=== PATIENT | female | born 1960 | race Caucasian/White ===

== ENCOUNTER 2018-12-06 15:40 | Observation (INO) | payer BC, SELFPAY ==
[2018-12-06] VITALS (9 sets, daily range): BP systolic 115–152; BP diastolic 60–86; PULSE 105–118; RESP 6–20; TEMP 36.5–37; O2SAT 92–98
[2018-12-06 16:05] LABS: Bilirubin Negative (Negative); Blood Negative (Negative); Clarity Clear (Clear); Glucose Negative (Negative); Ketones Negative (Negative); Leukocyte Esterase Negative (Negative); Nitrite Negative (Negative); Specific Gravity 1.025 (1.005-1.025); Urobilinogen 0.2 EU/dL (Up TO 0.2); pH 5.5 (5-8)
[2018-12-06] MEDS: Lactated Ringers 1,000 ML 1000 ML IV (16:28)
[2018-12-06 16:42] LABS: Abs Immature Grans 0.03 k/cumm (0.0-0.09); Absolute Basophil Count 0.02 k/cumm (0.0-0.2); Absolute Eosinophil Count 0.17 k/cumm (0.0-0.7); Absolute Lymphocyte Count 1.65 k/cumm (1.2-3.4); Absolute Monocyte Count 0.81 k/cumm (0.11-0.7); Basophils % 0.2; Eosinophils % 1.6; HCT 43.1 % (36.0-46.0); HGB 14.3 g/dL (12.0-15.5); Immature Grans % 0.3; Lymphocytes % 15.6; Mean Corp. HGB Concentration 33.2 g/dL (32.0-36.0); Mean Corpuscular Hemoglobin 28.5 pg (27.0-33.0); Mean Corpuscular Volume 85.9 fL (80-95); Mean Platelet Volume 10.5 fL (8.0-11.0); Monocytes % 7.7; Neutrophils % 74.6; Platelet Count 239 x1000/uL (130-400); RBC 5.02 m/cumm (4.00-5.20); White Blood Cell Count 10.58 k/cumm (4.4-10.8)
[2018-12-06 17:04] LABS: ALT 28 U/L (12-78); AST 10 U/L (15-37); Albumin 3.5 g/dL (3.4-5.0); Alkaline Phosphatase 85 U/L (46-116); Anion Gap 8.3 mmol/L (3-11); BUN 18 mg/dL (7-18); Bilirubin, Total 0.4 mg/dL (0.2-1.0); CO2 25.7 mmol/L (21.0-32.0); CREATININE 0.72 mg/dL (0.55-1.02); Calcium 8.9 mg/dL (8.5-10.1); Chloride 105 mmol/L (98-107); Glucose 90 mg/dL (70-100); Magnesium 1.8 mg/dL (1.8-2.4); Potassium 3.9 mmol/L (3.5-5.1); Sodium 139 mmol/L (136-145); Total Protein 7.5 g/dL (6.4-8.2)
[2018-12-06 17:20] LABS: Troponin I < 0.05 ng/mL (0.00-0.06)
--- NOTE | 2018-12-06 17:37 | DI.CT_ITS ---
SYMPTOM/DIAGNOSIS: RLQ PAIN ABDOMEN AND PELVIC CT: CT scan of the abdomen and pelvis was performed following the uneventful administration of intravenous contrast material. There are no priors for comparison. Atelectatic changes are seen in the lung bases. Note is made of a small hiatal hernia. The liver is normal in size. There is diffuse decreased attenuation of the liver suggesting hepatic steatosis. No suspicious hepatic mass is seen. The portal, superior mesenteric and splenic veins are patent. The gallbladder appears negative. There is no biliary ductal dilatation. The pancreas and peripancreatic soft tissues show no acute abnormality. The spleen is unremarkable. The right adrenal gland is unremarkable. There is a solid, 2.6 by 2.4 cm. left adrenal mass. The kidneys show normal and symmetric enhancement. There are tiny hypodensities seen within the kidneys bilaterally. They are too small for further characterization but likely reflect small cysts. There is a non obstructing 3 mm. stone in the lower pole of the right kidney. The urinary bladder is intact. There is a right inguinal hernia present. There is fat and soft tissue in the hernia. There does not appear to be bowel in the hernia. The uterus is deviated to the right near the hernia orifice. There is soft tissue adjacent to the uterus measuring 2.8 by 1.8 cm. It may represent the right ovary. Soft tissue in the right inguinal hernia may represent mesenteric tissue/omental tissue or possible ovarian tissue. Mass cannot be excluded. The appendix is visualized and is grossly unremarkable. There is mild bowel wall thickening seen in the terminal ileum. There is also mild dilatation of the small bowel proximal to the ileum. The colon is of normal caliber. No inflammatory process or obstruction of the colon is noted. The abdominal aorta is of normal caliber. No significant abdominal or pelvic adenopathy or pneumoperitoneum is seen. There is a trace amount of free fluid in the pelvis. Moderate degenerative changes are seen throughout the spine. IMPRESSION: Right inguinal hernia with inflammatory change, fluid and soft tissue within the hernia and in the right lower quadrant. Mild inflammatory changes are seen in the wall of the terminal ileum. There is mild dilatation of the small bowel proximally. This may represent ileus or obstruction. Soft tissue in the right inguinal hernia may represent inflamed mesentery or omentum. The possibility of a portion of the right ovary within the hernia may be considered. Normal appendix. 2.6 cm. left adrenal mass. Follow up is recommended. This may include a pre and post contrast CT scan according to the adrenal protocol. If there are prior studies for comparison, they may be submitted and an addendum will be issued.
[2018-12-06] MEDS: Omnipaque 350 MG/ML 100 ML BTL IJ (17:42)
--- NOTE | 2018-12-06 18:20 | DI.VRAD_ITS ---
EXAM: CT Abdomen and Pelvis With Contrast EXAM DATE/TIME: 12/06/2018 4:18 PM CLINICAL HISTORY: 57 years old, female; Abdominal pain; Tenderness; Right lower quadrant (rlq); Patient HX: Rlq pain over TECHNIQUE: Imaging protocol: Axial computed tomography images of the abdomen and pelvis with intravenous contrast. Coronal and sagittal reformatted images were created and reviewed. Radiation optimization: All CT scans at this facility use at least one of these dose optimization techniques: automated exposure control; mA and/or kV adjustment per patient size (includes targeted exams where dose is matched to clinical indication); or iterative reconstruction. Contrast material: OMNI-PAQUE 350; Contrast volume: 100 ml; Contrast route: IV; COMPARISON: No relevant prior studies available. FINDINGS: Mediastinum: Hiatal hernia. Liver: Hepatic steatosis. Gallbladder and bile ducts: Normal. No calcified stones. No ductal dilation. Pancreas: Normal. No ductal dilation. Spleen: Normal. No splenomegaly. Adrenals: 2.6 cm left adrenal mass. Kidneys and ureters: Hypodense subcentimeter lesion in the kidneys may represent renal cysts. Punctate right renal calculus without hydronephrosis. Stomach and bowel: There is inflammatory changes of the terminal ileum in the right lower quadrant adjacent to the herniation. There is focal dilated small bowel. Appendix: The cecum and appendix are unremarkable. Intraperitoneal space: Small amount of free fluid. Vasculature: Atherosclerotic calcification of the aorta and iliac arteries. Atherosclerotic calcification of the aorta and iliac arteries. Lymph nodes: Normal. No enlarged lymph nodes. Bladder: Unremarkable as visualized. Reproductive: Herniation of the right ovary into the right inguinal canal with surrounding inflammatory changes of the right lower quadrant, right pelvis, and right inguinal canal. The uterus is displaced to the right and anterior. Left ovary is unremarkable. Bones/joints: Mild degenerative changes of the thoracic and lumbar spine. Soft tissues: Focal inflammatory changes right lower quadrant and right inguinal canal. The or IMPRESSION: Right ovary herniated through the right inguinal canal with surrounding inflammatory changes involving the right ovary and terminal ileum and dilated loops of small bowel. No free fluid. 2.6 cm left adrenal mass. Punctate right renal calculi without hydronephrosis. Dictated and Authenticated by: Ariella Weiner MD. Ordering:MARA Lopez MD
--- NOTE | 2018-12-06 19:08 | ED.GENADUL_ITS ---
Discharge Plan Disposition Patient Disposition: [facility] INPATIENT Condition: Poor Discharge Details Chief Complaint: Abd Prob Clinical Impression: Incarcerated right inguinal hernia Admit Date/Time: 12/06/18 22:36 Admit Provider: Yee Dominguez Attending Provider: Yee Dominguez Primary Care Provider: Carlota Bailey [facility] Course: This patient presented to the emergency department with significant right groin pain. She did have a known hernia. CT scan of the abdomen and pelvis showed an incarcerated right inguinal hernia with the right ovary present. She was taken to the operating room and underwent repair of the hernia. She tolerated the procedure very well. On the day of discharge she was tolerating a diet had excellent pain control and was passing flatus. It was noted on her CT scan that a left adrenal nodule was present. This should have follow-up testing to be sure it is not a functional nodule with a 24-hour urine. The patient will follow up with her primary care physician. The patient is also advised to have a sleep study based on her behavior immediately postoperatively. Discharge Instructions Instructions: Inguinal Hernia Repair (GEN) Additional Instructions: Okay to use Tylenol and ibuprofen for pain May drive when pain control is adequate for safe driving. Use Colace 100 mg once or twice a day as needed for constipation Call for any concerns with infection or bleeding Forms: Nursing Discharge Form Referrals: Yee Dominguez MD [ [facility] STAFF PHYSICIAN] - (Return to the office in 03-09 for a postoperative visit. This may be scheduled with JAIR Tolbert) Discharge Data Discharge Date/Time-TO BE ENTERED AT DEPARTURE: 12/06/18 20:40 Medical Decision Making Patient is a 57-year-old female presenting today with chief complaint of right lower quadrant pain. Patient reports that she has a hernia in this area that seem to be bothering her some yesterday. States that she is had dyspnea for several years and is typically able to reduce this easily. States that yesterday she notes some achiness in this area and is progressively worsened throughout the course today. Reports diminished appetite, has not eaten anything since this morning. Denies any nausea or vomiting. No change in bowel habits. No dysuria or change in urinary habits. She denies any fevers or chills. Surgical history pertinent for section. Patient reports that pain is worse with movements, particularly going to sitting up position. States that she also is very active recently and is questioning if this may be muscular. On exam, patient appears nontoxic. She is resting comfortably. She is particularly tender over McBurney's point. I do not palpate any area of hernia but her indication may simply this likely a inguinal hernia that she typically suffers from. I advised that I am concerned for possible appendicitis. Plan for imaging and laboratory evaluation. As the patient has not been taking anything p.o., will give oral hydration. Labs reviewed, patient has mild leukocytosis of 11. No electrolyte abnormalities. No findings to suggest a urinary involvement. CT reviewed by radiologist: FINDINGS: Mediastinum: Hiatal hernia. Liver: Hepatic steatosis. Gallbladder and bile ducts: Normal. No calcified stones. No ductal dilation. Pancreas: Normal. No ductal dilation. Spleen: Normal. No splenomegaly. Adrenals: 2.6 cm left adrenal mass. Kidneys and ureters: Hypodense subcentimeter lesion in the kidneys may represent renal cysts. Punctate right renal calculus without hydronephrosis. Stomach and bowel: There is inflammatory changes of the terminal ileum in the right lower quadrant adjacent to the herniation. There is focal dilated small bowel. Appendix: The cecum and appendix are unremarkable. Intraperitoneal space: Small amount of free fluid. Vasculature: Atherosclerotic calcification of the aorta and iliac arteries. Atherosclerotic calcification of the aorta and iliac arteries. Lymph nodes: Normal. No enlarged lymph nodes. Bladder: Unremarkable as visualized. Reproductive: Herniation of the right ovary into the right inguinal canal with surrounding inflammatory changes of the right lower quadrant, right pelvis, and right inguinal canal. The uterus is displaced to the right and anterior. Left ovary is unremarkable. Bones/joints: Mild degenerative changes of the thoracic and lumbar spine. Soft tissues: Focal inflammatory changes right lower quadrant and right inguinal canal. The or IMPRESSION: Right ovary herniated through the right inguinal canal with surrounding inflammatory changes involving the right ovary and terminal ileum and dilated loops of small bowel. No free fluid. 2.6 cm left adrenal mass. Punctate right renal calculi without hydronephrosis. Discussed findings with the patient. Will consult with OB and general surgery. Patient I also discussed the 2.6 cm left adrenal mass. She will follow-up with her primary care regarding this mass on outpatient basis. Consulted with Dr. Burnham with [facility]. Will speak with general surgery as well. Consulted with Dr. Best who recommended attempting to reduce the hernia. Reassessed the patient, both patient and I are unable to palpate the hernia, partially due to the patient's body habitus. I again consulted with general surgery who advised to take patient to the operating room. Dr. Burnham is also coming in to assess the patient and be available should her surgical specialty be necessary. Patient has remained n.p.o. while being here. She has remained comfortable. We discussed the expected course, all of her questions and concerns were addressed and she is in agreement this plan. Patient was taken to the operating room for hernia repair. HPI General Mode of arrival: ambulatory . Date/Time Provider Initiated Documentation: 12/06/18 15:55 . Limitations to Documentation: no limitations . Information obtained by: patient and RN notes reviewed . History of Present Illness 57 year old F presents to the emergency department with the chief complaint of RLQ abdominal pain, described as moderate, with intensity rated at 7. Quality is described as aching, and is localized to the abdomen. Patient reports no radiation. Patient started experiencing this day(s) (1) and it has been constant. No relieving factors improve symptom(s), No exacerbating factors reported . Patient notes loss of appetite; denies chest pain, cough, diaphoresis, fever/chills, headaches, malaise, nausea/vomiting, rash, shortness of breath and weakness. Patient did receive the following treatments prior to arrival, none Related Data Home Medications Medication Instructions Recorded Confirmed enalapril maleate 10 mg PO DAILY tab-cap 09/19/12 12/06/18 simvastatin 20 mg PO HS tab-cap 09/19/12 12/07/18 ibuprofen 600 mg PO PRN 11/10/15 12/06/18 amlodipine 2.5 mg PO DAILY 12/07/18 12/07/18 omeprazole 20 mg PO Q48H 12/07/18 12/07/18 tramadol 50 mg PO Q8H PRN #20 tab 12/07/18 Previous Rx's Medication Instructions Recorded tramadol 50 mg PO Q8H PRN #20 tab 12/07/18 Allergies Allergy/AdvReac Type Severity Reaction Status Date / Time No Known Allergies Allergy Unverified 12/06/18 15:46 General Stated Complaint: Abd Prob IZZY: 3 Review of Systems Constitutional Reports as per HPI, Denies chills, Denies fatigue, Denies fever(s) and Denies headache(s) ENT Denies headache(s) Cardiovascular Reports as per HPI, Denies chest pain and Denies dyspnea Respiratory Reports as per HPI, Denies cough and Denies dyspnea Gastrointestinal Reports as per HPI Musculoskeletal Reports as per HPI and Denies back pain Integumentary/Breasts Reports as per HPI and Denies rash Neurologic Reports as per HPI and Denies headache(s) Endocrine Denies fatigue PFSH Medical History Essential hypertension Hyperlipidemia Polyp of colon Surgical History Biopsy, Soft Tissue (03/27/17) section History of ankle surgery (Acute) Ligation of fallopian tube Family History Mother Diabetes Breast cancer Father Prostate cancer Essential hypertension Heart disease Grandmother Breast cancer Social History Smoking/Tobacco Use Status: Former Tobacco Use Alcohol Intake: current Alcohol Intake frequency: a few times a week Drug use: Never Substance use type: does not use Details: QUIT SMOKING MAY 30, 2009. Do you feel safe at home: Yes Do you feel safe in your relationship?: Yes Exam Const General: cooperative, healthy appearing, comfortable, no acute distress and well developed Nutritional Appearance: well nourished and overweight Orientation: alert and awake HENMT Head: normal to inspection Mouth: moist mucous membranes Resp Effort & Inspection: normal respiratory effort, able to speak in complete sentences and no respiratory distress Auscultation: clear to auscultation bilaterally, no rales, no rhonchi and no wheezes Cardio Rate: regular rate Rhythm: regular rhythm Heart Sounds: S1 normal and S2 normal GI Inspection: obesity Palpation: soft, no hepatosplenomegaly, not firm, guarding in the RLQ (over McBurney's point), not rigid, tender in the RLQ, at McBurney's point and with rebound tenderness; obturator sign negative and psoas sign negative and No ascites Percussion: normal to percussion Auscultation: normal bowel sounds Back/Spine/Pelvis Back: no CVA tenderness Skin General skin exam: no rashes or lesions noted Trauma: no lacerations or abrasions Neuro General: alert and awake Cognition: normal cognition Speech: speech normal Gait: normal gait Psych Appearance: grossly normal and well kempt Mental Status: mental status grossly normal Speech and Movement: speech and movement normal Course Vital Signs Temperature 36.8 C 12/06/18 15:43 Pulse 110 H 12/06/18 15:43 Respiratory Rate 20 12/06/18 15:43 Blood Pressure 129/86 12/06/18 15:43 Pulse Oximetry 96 12/06/18 15:43 Temperature 36.8 C 12/06/18 18:53 Temperature Source Skin 12/06/18 18:53 Pulse 113 H 12/06/18 18:53 Respiratory Rate 16 12/06/18 18:53 Respiratory Effort Non-Labored 12/06/18 15:43 Blood Pressure 148/79 H 12/06/18 18:53 Blood Pressure Position Standing 12/06/18 15:43 Pulse Oximetry 98 12/06/18 18:53 Oxygen Delivery Method Room Air 12/06/18 18:53 Oxygen Flow Rate 0 12/06/18 18:53 Pain Level 4 12/06/18 18:53 Lab/Test Results Lab/Test Results: Laboratory Tests Range/Units 12/06/18 12/06/18 12/06/18 15:52 16:10 16:10 WBC (4.4-10.8) k/cumm 10.58 RBC (4.00-5.20) m/cumm 5.02 Hgb (12.0-15.5) g/dL 14.3 Hct (36.0-46.0) % 43.1 MCV (80-95) fL 85.9 MCH (27.0-33.0) pg 28.5 MCHC (32.0-36.0) g/dL 33.2 RDW (11.7-14.6) % 14.0 Plt Count (130-400) x1000/uL 239 MPV (8.0-11.0) fL 10.5 Immature Gran % 0.3 Neutrophils % 74.6 Lymphocytes % 15.6 Monocytes % 7.7 Eosinophils % 1.6 Basophils % 0.2 Absolute Neutrophils (1.2-6.7) k/cumm 7.90 H Absolute Lymphocytes (1.2-3.4) k/cumm 1.65 Absolute Monocytes (0.11-0.7) k/cumm 0.81 H Absolute Eosinophils (0.0-0.7) k/cumm 0.17 Absolute Basophils (0.0-0.2) k/cumm 0.02 Sodium (136-145) mmol/L 139 Potassium (3.5-5.1) mmol/L 3.9 Chloride (98-107) mmol/L 105 Carbon Dioxide (21.0-32.0) mmol/L 25.7 Anion Gap (3-11) mmol/L 8.3 BUN (7-18) mg/dL 18 Creatinine (0.55-1.02) mg/dL 0.72 Estimated GFR/1.73 m2 (mL/min/1.73m2) >= 60.00 Glucose (70-100) mg/dL 90 Calcium (8.5-10.1) mg/dL 8.9 Magnesium (1.8-2.4) mg/dL 1.8 Total Bilirubin (0.2-1.0) mg/dL 0.4 AST (15-37) U/L 10 L ALT (12-78) U/L 28 Alkaline Phosphatase (46-116) U/L 85 Troponin I (0.00-0.06) ng/mL < 0.05 Total Protein (6.4-8.2) g/dL 7.5 Albumin (3.4-5.0) g/dL 3.5 Urine Color (Yellow) Yellow Urine Clarity (Clear) Clear Urine pH (5-8) 5.5 Ur Specific Ignacio (1.005-1.025) 1.025 Urine Protein (Negative) mg/dL Negative Urine Ketones (Negative) mg/dL Negative Urine Blood (Negative) Negative Urine Nitrite (Negative) Negative Urine Bilirubin (Negative) Negative Urine Urobilinogen (Up TO 0.2) EU/dL 0.2 Ur Leukocyte Esterase (Negative) Negative Urine Glucose (Negative) mg/dL Negative
--- NOTE | 2018-12-06 20:30 | HPE_ITS ---
Date of service: 12/06/18 Time of Service: 20:30 Assessment and Plan (1) Incarcerated right inguinal hernia: Current visit: Yes Status: Acute The patient will be taken to the OR tonight for reduction and repair of the right inguinal hernia. Dr. Chris Cordero will assist and perform a right oophorectomy in the event the ovary is compromised. There is not clearly bowel involved, but the patient was advised a small bowel resection with anastomosis is a remote possibility. The hernia will be approached from the groin initially but if there is any concern about intra-abdominal organs, there is also a remote possibility laparotomy will be needed. The risks of infection, bleeding, hernia recurrence, chronic pain or numbness, bowel leak were discussed. She agrees to proceed. History of Present Illness Narrative: Patient noted increased right groin pain after cleaning/reaching last evening. Pain worsened throughout the day and she presented to the ER. No vomiting but does have nausea. Patient has known inguinal hernia for years that has been reducible. CT showed a right inguinal hernia with incarceration of the right ovary. Review of Systems Constitutional Denies fatigue and Denies headache(s) Eyes Denies change in vision ENT Denies headache(s) and Denies neck mass Cardiovascular Denies chest pain, Denies edema, Denies palpitations and Denies dyspnea Respiratory Denies cough, Denies dyspnea and Denies wheezing Gastrointestinal Denies hematochezia and Denies change in bowel habits Genitourinary Denies abnormal vaginal bleeding and Denies dysuria Musculoskeletal Denies joint swelling Integumentary/Breasts Denies new lesions and Denies rash Neurologic Denies confusion, Denies headache(s) and Denies focal weakness Psychiatric Reports system reviewed and no additional complaints, except as docu and Denies confusion Endocrine Denies fatigue and Denies palpitations Hematologic/Lymphatic Denies easy bleeding and Denies lymphadenopathy Allergic/Immunologic Denies wheezing [facility] Medical History (Updated 12/06/18 @ 20:36 by Yee Dominguez MD) Essential hypertension Hyperlipidemia Polyp of colon Surgical History Biopsy, Soft Tissue (03/27/17) section History of ankle surgery (Acute) Ligation of fallopian tube Family History Mother Diabetes Breast cancer Father Prostate cancer Essential hypertension Heart disease Grandmother Breast cancer Social History Smoking/Tobacco Use Status: Former Tobacco Use Alcohol Intake: current Alcohol Intake frequency: a few times a week Drug use: Never Substance use type: does not use Do you feel safe at home: Yes Do you feel safe in your relationship?: Yes Meds Home Medications Medication Instructions Recorded Confirmed Type enalapril maleate 10 mg PO DAILY tab-cap 09/19/12 12/06/18 History omeprazole 20 mg PO DAILY tab-cap 09/19/12 12/06/18 History simvastatin 20 mg PO DAILY tab-cap 09/19/12 12/06/18 History amlodipine-atorvastatin 2.5 mg DAILY 02/20/13 12/06/18 History ibuprofen 600 mg PO PRN 11/10/15 12/06/18 History Allergies Allergy/AdvReac Type Severity Reaction Status Date / Time No Known Allergies Allergy Unverified 12/06/18 15:46 Exam Const General: healthy appearing and not in acute distress Nutritional Appearance: well nourished Orientation: oriented x3 HENMT Head: normal to inspection Eyes Sclera: sclerae normal Pupils: PERRL Neck Neck: no lymphadenopathy Resp Effort & Inspection: normal respiratory effort Auscultation: clear to auscultation bilaterally and no wheezes Cardio Rate: tachycardic Rhythm: regular rhythm Pulses: dorsalis pedis pulses present GI Inspection: non-distended Palpation: soft and no hepatosplenomegaly Other: Mild generalized abdominal tenderness Very tender to palpation in right groin. Hernia difficult to palpate due to discomfort. Skin General skin exam: no rashes or lesions noted Neuro General: alert Cognition: normal cognition Extrem General: normal to inspection Psych Affect: normal affect Attitude: cooperative Results Labs : 12/06/18 16:10 12/06/18 16:10 Laboratory Results - last 24 hr 12/06/18 12/06/18 12/06/18 15:52 16:10 16:10 WBC 10.58 RBC 5.02 Hgb 14.3 Hct 43.1 MCV 85.9 MCH 28.5 MCHC 33.2 RDW 14.0 Plt Count 239 MPV 10.5 Immature Gran % 0.3 Neutrophils % 74.6 Lymphocytes % 15.6 Monocytes % 7.7 Eosinophils % 1.6 Basophils % 0.2 Absolute Neutrophils 7.90 H Absolute Lymphocytes 1.65 Absolute Monocytes 0.81 H Absolute Eosinophils 0.17 Absolute Basophils 0.02 Sodium 139 Potassium 3.9 Chloride 105 Carbon Dioxide 25.7 Anion Gap 8.3 BUN 18 Creatinine 0.72 Estimated GFR/1.73 m2 >= 60.00 Glucose 90 Calcium 8.9 Magnesium 1.8 Total Bilirubin 0.4 AST 10 L ALT 28 Alkaline Phosphatase 85 Troponin I < 0.05 Total Protein 7.5 Albumin 3.5 Urine Color Yellow Urine Clarity Clear Urine pH 5.5 Ur Specific [place] 1.025 Urine Protein Negative Urine Ketones Negative Urine Blood Negative Urine Nitrite Negative Urine Bilirubin Negative Urine Urobilinogen 0.2 Ur Leukocyte Esterase Negative Urine Glucose Negative Last Vital Signs Temp 98.2 F 12/06/18 18:53 Pulse 113 H 12/06/18 18:53 Resp 16 12/06/18 18:53 BP 148/79 H 12/06/18 18:53 Pulse Ox 98 12/06/18 18:53
[2018-12-06] MEDS: Lactated Ringers 1,000 ML 125 ML IV (20:45)
[2018-12-06] MEDS: Lidocaine 2% Multi-Dose 50 ML VIAL (21:06)
[2018-12-06] MEDS: Bupivacaine 0.5% Pres-Free 30 ML VIAL (21:06)
[2018-12-07 00:08] VITALS: BP 113/77; PULSE 99; RESP 14; TEMP 37; O2SAT 93
[2018-12-07 01:10] VITALS: O2SAT 93
[2018-12-07 03:40] VITALS: BP 126/75; PULSE 108; RESP 18; TEMP 36.4; O2SAT 96
[2018-12-07] MEDS: Lactated Ringers 1,000 ML 75 ML IV (04:41)
[2018-12-07 07:25] VITALS: BP 112/68; PULSE 87; RESP 16; TEMP 36.7; O2SAT 94
[2018-12-07 08:03] LABS: Abs Immature Grans 0.03 k/cumm (0.0-0.09); Absolute Lymphocyte Count 0.72 k/cumm (1.2-3.4); Absolute Monocyte Count 0.46 k/cumm (0.11-0.7); HCT 40.6 % (36.0-46.0); Immature Grans % 0.3; Lymphocytes % 6.5; Mean Corpuscular Hemoglobin 27.6 pg (27.0-33.0); Mean Corpuscular Volume 86.2 fL (80-95); Monocytes % 4.2; Platelet Count 247 x1000/uL (130-400); RBC 4.71 m/cumm (4.00-5.20); White Blood Cell Count 11.06 k/cumm (4.4-10.8)
[2018-12-07 08:10] LABS: Absolute Neutrophil Count 9.84 k/cumm (1.2-6.7)
[2018-12-07] MEDS: Enalapril 5 MG TAB 10 MG PO (08:23)
[2018-12-07] MEDS: Omeprazole 20 MG CAPCR PO (08:24)
[2018-12-07] MEDS: Simvastatin 20 MG TAB PO (08:24)
[2018-12-07 10:40] VITALS: BP 114/69; O2SAT 94
[2018-12-07] MEDS: amLODIPine 2.5 MG TAB PO (10:40)
--- NOTE | 2018-12-07 11:26 | PDOC.CMIN ---
Care Management Initial Assess REASON FOR HOSPITALIZATION:: reduction and repair of right inguinal hernia PAST MEDICAL HISTORY/PAST SURGICAL HISTORY:: Essential hypertension, hyperlipidemia, polyp of colon, soft tissue biopshy of right anterior thigh, section x3, ankle surgery L fracture repair, ligation of fallopian tube PREVIOUS FUNCTIONAL STATUS/SOCIAL/FAMILY SUPPORTS:: Meera resides in [place], [place], and is a teacher at [employer]. Her daughter also resides in [place]. Her SO, Mike resides in [place], [place]. She is independent at baseline in the community. ADVANCE DIRECTIVES:: None on file at [facility]. Has patient been provided with information about the portal?: Yes Did the patient sign up for the portal?: Yes (Previously ) CODE STATUS:: Full Code INSURANCE COVERAGE / FINANCIAL ISSUES:: BC/BS CURRENT HOME/COMMUNITY SERVICES/EQUIPMENT:: No current services/equipment. PRIMARY CARE PHYSICIAN:: Carlota Bailey; [facility] POTENTIAL DISCHARGE NEEDS:: Follow up appointments with community providers. PATIENT/FAMILY EDUCATION NEEDS:: Review discharge instructions, discuss [employer]. ANTICIPATED BARRIERS TO DISCHARGE:: None identified at this time. TRANSPORTATION:: Via private vehicle with family. PLAN:: Meera continues to be closely monitored post surgically. She willl discharge home with no additional services anticipated at this time and follow up with her PCP as has recommendations for sleep study as well. She will transport via private vehicle with her significant other.
[2018-12-07 11:33] VITALS: BP 112/63; PULSE 96; RESP 20; TEMP 37.2; O2SAT 95
--- NOTE | 2018-12-07 11:36 | W.PM.DS.N ---
Date of service: 12/07/18 Time of Service: 11:36 DS: Diagnosis Discharge Diagnosis (1) Incarcerated right inguinal hernia: Status: Acute Discharge Plan Disposition Patient Disposition: HOME Condition: Good Discharge Details Chief Complaint: Abd Prob Reason For Visit: INCARCERATED RIGHT INGUINAL HERNIA Admit Date/Time: 12/06/18 22:36 Admit Provider: Yee Dominguez Attending Provider: Yee Dominguez Primary Care Provider: Carlota Bailey ED Provider: Jessica Banuelos Hospital Course Hospital Course: This patient presented to the emergency department with significant right groin pain. She did have a known hernia. CT scan of the abdomen and pelvis showed an incarcerated right inguinal hernia with the right ovary present. She was taken to the operating room and underwent repair of the hernia. She tolerated the procedure very well. On the day of discharge she was tolerating a diet had excellent pain control and was passing flatus. It was noted on her CT scan that a left adrenal nodule was present. This should have follow-up testing to be sure it is not a functional nodule with a 24-hour urine. The patient will follow up with her primary care physician. The patient is also advised to have a sleep study based on her behavior immediately postoperatively. Home Meds and New Rx's Prescriptions: New tramadol 50 mg tablet 50 mg PO Q8H PRN (Reason: pain) Qty: 20 RF: 0 Continued enalapril maleate 5 MG tablet 10 mg PO DAILY RF: 0 simvastatin 20 MG tablet 20 mg PO HS RF: 0 ibuprofen 600 MG tablet 600 mg PO PRN RF: 0 amlodipine 2.5 mg Tablet 2.5 mg PO DAILY RF: 0 omeprazole 20 mg Capsule,Delayed Release(Dr/Ec) 20 mg PO Q48H RF: 0 Discharge Instructions Additional Instructions: Okay to use Tylenol and ibuprofen for pain May drive when pain control is adequate for safe driving. Use Colace 100 mg once or twice a day as needed for constipation Call for any concerns with infection or bleeding Stand Alone Forms: Nursing Discharge Form Referrals: Yee Dominguez MD [ [facility] STAFF PHYSICIAN] - (Return to the office in 03-09 for a postoperative visit. This may be scheduled with JAIR Tolbert) Activity:: DO not lift more than 15# for one month postop Equipment/Supplies:: No Equipment Needed Diet:: As Tolerated Discharge Orders Discharge Orders: Discharge Order (Routine); Ordered 12/07/18 Ordered By: Yee Dominguez Exam Narrative Exam Narrative: Appears well Right groin incision looks good. Steri strips in place DS: Data Vitals/I&O Vitals and I&O: Vital Signs Temperature 99.0 F 12/07/18 11:33 Temperature Source Skin 12/07/18 11:33 Pulse 96 H 12/07/18 11:33 Pulse Rhythm Regular 12/07/18 09:14 Respiratory Rate 20 12/07/18 11:33 Respiratory Effort 12/07/18 09:14 Respiratory Depth Normal 12/07/18 09:14 Respiratory Pattern Normal 12/07/18 09:14 Blood Pressure 112/63 12/07/18 11:33 Blood Pressure Position Standing 12/06/18 15:43 Pulse Oximetry 95 12/07/18 11:33 Respiratory End-tidal CO2 33 12/06/18 22:56 Oxygen Delivery Method Room Air 12/07/18 11:33 Oxygen Flow Rate 0 12/07/18 11:33 Pain Level 2 12/07/18 09:13 Comment 12/07/18 03:40 Intake & Output 12/06/18 12/06/18 12/07/18 11:59 23:59 11:59 Intake Total 1640 / 1640 600 / 600 Output Total 70 / 70 250 / 250 Balance 1570 / 1570 350 / 350 Weight 181 lb 10.574 oz 181 lb 10.574 oz Intake: IV 1600 / 1600 Oral 40 / 40 600 / 600 Output: Urine 50 / 50 250 / 250 Estimated Blood Loss 20 / 20 Other: Urine Color Yellow Dark Zeenat Urine Appearance Clear Clear Urine Odor Strong Emesis Description None Voiding Methods Toilet Completed studies during hospitalization [Text1]: IMPRESSION: Right ovary herniated through the right inguinal canal with surrounding inflammatory changes involving the right ovary and terminal ileum and dilated loops of small bowel. No free fluid. 2.6 cm left adrenal mass. Punctate right renal calculi without hydronephrosis. Labs on day of discharge: Labs from last 24 hours 12/07/18 12/06/18 12/06/18 06:55 16:10 16:10 WBC 11.06 H 10.58 RBC 4.71 5.02 Hgb 13.0 14.3 Hct 40.6 43.1 MCV 86.2 85.9 MCH 27.6 28.5 MCHC 32.0 33.2 RDW 14.0 14.0 Plt Count 247 239 MPV 11.0 10.5 Immature Gran % 0.3 0.3 Neutrophils % 89.0 74.6 Lymphocytes % 6.5 15.6 Monocytes % 4.2 7.7 Eosinophils % 0.0 1.6 Basophils % 0.0 0.2 Absolute Neutrophils 9.84 H 7.90 H Absolute Lymphocytes 0.72 L 1.65 Absolute Monocytes 0.46 0.81 H Absolute Eosinophils 0.00 0.17 Absolute Basophils 0.00 0.02 Sodium 139 Potassium 3.9 Chloride 105 Carbon Dioxide 25.7 Anion Gap 8.3 BUN 18 Creatinine 0.72 Estimated GFR/1.73 m2 >= 60.00 Glucose 90 Calcium 8.9 Magnesium 1.8 Total Bilirubin 0.4 AST 10 L ALT 28 Alkaline Phosphatase 85 Troponin I < 0.05 Total Protein 7.5 Albumin 3.5 Urine Color Urine Clarity Urine pH Ur Specific [place] Urine Protein Urine Ketones Urine Blood Urine Nitrite Urine Bilirubin Urine Urobilinogen Ur Leukocyte Esterase Urine Glucose 12/06/18 15:52 WBC RBC Hgb Hct MCV MCH MCHC RDW Plt Count MPV Immature Gran % Neutrophils % Lymphocytes % Monocytes % Eosinophils % Basophils % Absolute Neutrophils Absolute Lymphocytes Absolute Monocytes Absolute Eosinophils Absolute Basophils Sodium Potassium Chloride Carbon Dioxide Anion Gap BUN Creatinine Estimated GFR/1.73 m2 Glucose Calcium Magnesium Total Bilirubin AST ALT Alkaline Phosphatase Troponin I Total Protein Albumin Urine Color Yellow Urine Clarity Clear Urine pH 5.5 Ur Specific [place] 1.025 Urine Protein Negative Urine Ketones Negative Urine Blood Negative Urine Nitrite Negative Urine Bilirubin Negative Urine Urobilinogen 0.2 Ur Leukocyte Esterase Negative Urine Glucose Negative [facility] Medical History Essential hypertension Hyperlipidemia Polyp of colon Surgical History Biopsy, Soft Tissue (03/27/17) section History of ankle surgery (Acute) Ligation of fallopian tube Family History Mother Diabetes Breast cancer Father Prostate cancer Essential hypertension Heart disease Grandmother Breast cancer Social History Smoking/Tobacco Use Status: Former Tobacco Use Alcohol Intake: current Alcohol Intake frequency: a few times a week Drug use: Never Substance use type: does not use Details: QUIT SMOKING MAY 30, 2009. Do you feel safe at home: Yes Do you feel safe in your relationship?: Yes
--- NOTE | 2018-12-07 11:52 | PHARADMIT ---
Admission Pharmacy Clinical Review RIGHT INGUINAL HERNIA-OR 12/06/18 Code Status Full Code Current Weight 82.4 kg Renally Cleared and Narrow Therapeutic Index Meds CrCl~54ml/min QTc Value / Action Taken BP Control, Fever BP 112/63 Afebrile Pain 2/10 Electrolytes reviewed DVT Prophylaxis Opiate Usage / Scheduled Bowel Regimen Ordered [place]/MS IVP-no bowel meds Plt/SCr for Heparin / Enoxaparin Plt 247 SCr 0.72 INR for Warfarin H/H stable, WBC/Bands H/H 13.0/40.6 WBC 11.06 Antibiotic appropriateness Cultures and Sensitivities Surgical ABX d/c within 24 hr DM control / Insulin Dosing Heart Failure (Check EF%) (ANJU's, B-Block, Diuretics) Amlodipine, Enalapril, IV to PO Switch Home Meds Reviewed Home doses verified with [facility] Home Meds Not Ordered Comments
[2018-12-07] MEDS: Acetaminophen 325 MG TAB 650 MG PO (13:30)
--- NOTE | 2018-12-08 10:21 | ROE_ITS ---
DATE OF PROCEDURE: December 06, 2018 PREOPERATIVE DIAGNOSIS: Incarcerated right inguinal hernia. POSTOPERATIVE DIAGNOSIS: Same. PROCEDURE: Right incarcerated inguinal hernia repair with mesh. SURGEON: Yee Dominguez M.D. LIEUTENANT FIREFIGHTER: Janae Burnham M.D. ANESTHESIA: Local and general. INDICATIONS: This is a 57-year-old woman who has had a reducible right inguinal hernia for many year s. Last night she was reaching while cleaning and developed constant and worsening right groin pain. She presented to the Emergency Department where a CT scan of the abdomen and pelvis revealed an ing uinal hernia with incarcerated right ovary present. PROCEDURE: The patient was placed supine on the operating table and her abdomen was prepped and drap ed sterilely. The skin in the right groin was infiltrated with local anesthetic. The patient had a previous Pfannenstiel incision, of which the lateral half was used. Subcutaneous tissue was divided with cautery. A bridging vein was clamped, divided and ligated with #3-0 Vicryl ties. The external oblique fascia was identified and local anesthetic infiltrated underneath it. A small incision was m angel in the fascia and extended bluntly through the external inguinal ring and laterally as well. The hernia sac was quite large and extended well down past the pubic tubercle. This was dissected up to the internal ring. I did open the sac and found some chronically scarred fat here that was difficul t to dissect free from the sac itself. I did not wish to cause any trauma to the tissues. We did no t directly visualize the ovary, but the contents of the hernia reduced quite easily. There was no [place] wel present. Once the hernia sac was completely freed up and reduced through the internal ring, a la rge mesh plug was sutured in position with interrupted #2-0 Prolene stitches. A flat sheet mesh was then placed on the floor of the inguinal canal and sutured in standard Martine fashion. I did i dentify and preserve the ilioinguinal nerve. There was good hemostasis. The wound was irrigated and suctioned clean. The external oblique fascia was closed with a running #3-0 Vicryl stitch, as was S carpa's fascia, and the skin closed with a running #4-0 Monocryl subcuticular stitch. She tolerated the procedure well and was stable to recovery.
== END 2018-12-07 13:47 | disposition home or self-care (01) ==
LOC: ER 15:56 → SUR 20:40 → MS 23:25
PROVIDERS: Admitting Provider Surgery; Emergency Provider Physician Assistant; PCP Physician Assistant Medical; Visit Provider Surgery
PROC: 0YU50JZ Supplement Right Inguinal Region with Synthetic Substitute, Open Approach (ICD-10-PCS; CPT 49507; principal; 2018-12-06 19:55)
DX: K40.30 Unilateral inguinal hernia, with obstruction, without gangrene, not specified as recurrent (principal); R93.89 Abnormal findings on diagnostic imaging of other specified body structures; I10 Essential (primary) hypertension
CPT/HCPCS: 49507; 36415; 80053; 99223; 99238; 99285; 74177; 81003; 83735; 84484; 85025; 99284; C1781; G0378; J1100; J1885; J2250; J2405; J3490

== ENCOUNTER 2019-01-30 10:28 | Outpatient (REF) | payer BC, SELFPAY ==
--- NOTE | 2019-01-30 10:00 | PAPFT_PTH ---
PATIENT: Meera Winslow LOC: [facility] U#:[id number] AGE/SX: 58/F ROOM: RE01/30/[address]: JOSE Edwards : 1960 BED: DIS: 01/30/2019 SPEC #: [id number] RECD: 01/30/19 13:08 STATUS: ULICES OVIEDO #: [id number] LESLIE: 01/30/19 10:[address]: Carlota Cunningham DEPT: [facility] Cytology RECD BY: Yina Agosto ENTERED: 01/30/19 13:09 SP TYPE: PAPFT OTHR DR: Carlota Bailey Tissues: 1 - CX/ENDOCX FOR PAP SMEARS Procedures: PAP THIN PREP/UVM Screening HPV DNA PROBE Comments: [id number]
== END 2019-01-30 10:48 ==
LOC: LBN 10:28
PROVIDERS: PCP Physician Assistant Medical; Visit Provider Nurse Practitioner Family
DX: Z12.4 Encounter for screening for malignant neoplasm of cervix (principal); Z11.51 Encounter for screening for human papillomavirus (HPV)
CPT/HCPCS: 88142; 87624

== ENCOUNTER 2019-02-23 07:36 | Outpatient (CLI) | payer BC, SELFPAY ==
[2019-02-25 10:27] LABS: Metanephrine, Free <0.20 nmol/L (<0.50); Normetanephrine, Free 0.45 nmol/L (<0.90)
[2019-02-25 15:03] LABS: Renin Activity, Plasma 2.6 ng/mL/h
== END 2019-02-23 07:56 ==
PROVIDERS: PCP Physician Assistant Medical; Visit Provider Urology
DX: E27.9 Disorder of adrenal gland, unspecified (principal)
CPT/HCPCS: 36415; 82533; 82088; 83835; 84244

== ENCOUNTER 2021-07-18 11:20 | Outpatient (REF) | payer BC, SELFPAY ==
--- NOTE | 2021-07-18 10:30 | PAPFT_PTH ---
PATIENT: Meera Winslow LOC: [facility] U#:[id number] AGE/SX: 60/F ROOM: RE07/18/[address]: JOSE Edwards : 1960 BED: DIS: 07/18/2021 SPEC #: [id number] RECD: 07/18/21 12:56 STATUS: ULICES REQ #: [id number] LESLIE: 07/18/21 10:[address]: Carlota Cunningham DEPT: [facility] Cytology RECD BY: Yina Agosto ENTERED: 07/18/21 12:57 SP TYPE: PAPFT OTHR DR: Carlota Bailey Tissues: 1 - CX/ENDOCX FOR PAP SMEARS Procedures: PAP THIN PREP/UVM Screening HPV DNA PROBE Comments: [id number]
== END 2021-07-18 11:21 | disposition home or self-care (01) ==
LOC: LBN 11:20
PROVIDERS: PCP Physician Assistant Medical; Visit Provider Nurse Practitioner Family
DX: Z12.4 Encounter for screening for malignant neoplasm of cervix (principal); Z11.51 Encounter for screening for human papillomavirus (HPV)
CPT/HCPCS: 88142; 87624